=== PATIENT | male | born 1985 | race Caucasian/White ===

== ENCOUNTER 2016-07-30 18:01 | Emergency (ER) | payer OTHER ==
[~2016-07-30 18:01] MED LIST: ALFU10TA2 PO; AMIT150T PO; BENA25CA2 PO; CRAN400T3 PO; DITR5TAB PO; IBUP800T23 PO; MOBI15TA PO; PERC5TAB6 PO; ROBA500T PO; TOPA50TA7 PO; [UNRECOGNIZED DRUG - OTHER]
[2016-07-30] MEDS ORDERED: ONDANSETRON 4MG/2ML VIAL (J2405) As Ordered ONE (19:58)
[2016-07-30] MEDS ORDERED: MORPHINE 4 MG/ML 1ML SYRINGE As Ordered ONE (19:58)
[2016-07-30 20:20] LABS: BASO % 0.4 % (0.0-1.0); EOS # 0.2 K/mm3 (0.0-0.50); EOS % 1.6 % (0.0-3.0); LARGE UNSTAINED CELL # 0.2 K/mm3 (0.0-0.4); LARGE UNSTAINED CELL % 1.6 % (0.0-4.0); LYMPH # 3.1 K/mm3 (1.5-4.5); LYMPH % 28.7 % (24.0-44.0); MEAN CORPUSCULAR HEMOGLOBIN 30.1 pg (27.0-33.0); MEAN CORPUSCULAR HGB CONC 34.1 g/dl (32.0-36.5); MEAN CORPUSCULAR VOLUME 88.3 fl (80.0-96.0); MONO # 0.7 K/mm3 (0.0-0.8); MONO % 6.3 % (0.0-5.0); NEUTROPHILS # 6.7 K/mm3 (1.8-7.7); NEUTROPHILS % 61.3 % (36.0-66.0); PLATELET COUNT, AUTOMATED 230 k/mm3 (150-450); RED CELL DISTRIBUTION WIDTH 12.3 % (11.5-14.5); WHITE BLOOD COUNT 10.9 K/mm3 (4.0-10.0)
[2016-07-30 20:50] LABS: ALBUMIN 4.6 GM/DL (3.2-5.2); ALBUMIN/GLOBULIN RATIO 1.64 (1.00-1.93); ALKALINE PHOSPHATASE 81 U/L (45-117); ALT/SGPT 53 U/L (12-78); AMYLASE 44 U/L (25-115); ANION GAP 7 MEQ/L (8-16); AST/SGOT 21 U/L (15-37); BILIRUBIN,DIRECT < 0.1 MG/DL (0.0-0.2); BILIRUBIN,TOTAL 0.4 MG/DL (0.2-1.0); BLOOD UREA NITROGEN 14 MG/DL (7-18); CALCIUM LEVEL 9.5 MG/DL (8.5-10.1); CARBON DIOXIDE LEVEL 31 MEQ/L (21-32); CHLORIDE LEVEL 103 MEQ/L (98-107); CREATININE FOR GFR 0.97 MG/DL (0.70-1.30); GLOMERULAR FILTRATION RATE > 60.0 (>60); GLUCOSE, FASTING 89 MG/DL (70-105); POTASSIUM SERUM 4.1 MEQ/L (3.5-5.1); SODIUM LEVEL 141 MEQ/L (136-145); TOTAL PROTEIN 7.4 GM/DL (6.4-8.2)
--- NOTE | 2016-07-30 21:30 | REPUSA ---
CLINICAL HISTORY: Biliary colic . TECHNIQUE: Realtime sonographic images were obtained in multiple projections. COMMENTS: The visualized liver is of uniform echo texture without evidence of mass or defect. There is no intra or extrahepatic biliary ductal dilatation. The common bile duct measures 2.5 mm. The gallbladder is centimeters distended without stones, wall thickening, pericholecystic fluid or sonographic [place]. The visualized portions of the pancreas are unremarkable. Right kidney measures 10.6 cm and unremarka ble. IMPRESSION: No cholelithiasis or evidence of cholecystitis.
[2016-07-30] MEDS ORDERED: ISOVUE-370 76% 100ML VIAL (Q9967) As Ordered ONE (22:17)
--- NOTE | 2016-07-30 23:40 | REPUSA ---
CLINICAL HISTORY: Rule out appendicitis TECHNIQUE : A CT of the abdomen and pelvis was performed following the administration of oral and int ravenous contrast from the level of the heart to the proximal femoral diaphyses. Multiplanar reformat s were also obtained in coronal and sagittal projections. COMPARISON: CT abdomen pelvis 05/25/2015. FINDINGS: LOWER CHEST: The lung bases demonstrate mild bilateral lower lobe atelectasis. Heart is normal in siz e. No pleural or pericardial effusion is seen. LIVER: The liver is normal in size and contour. No hepatic lesion is seen. The portal and hepatic vei ns are patent. BILIARY SYSTEM: No intrahepatic biliary ductal dilatation is seen. The common duct is normal in calib er. The gallbladder is unremarkable with no focal or diffuse wall thickening seen. No pericholecystic fluid is seen. No calcified biliary calculi are identified. PANCREAS: The pancreas is normal in size, contour and density. No solid or cystic pancreatic mass is seen. No pancreatic duct dilatation is seen. SPLEEN: The spleen is normal in size and without focal lesion. ADRENALS: The adrenal glands are unremarkable. KIDNEYS/URETERS: The kidneys are normal in size and enhance normally. No calcified renal or ureteral calculi are seen. No suspicious renal mass or hydronephrosis is seen. The ureters are not dilated. URINARY BLADDER: The urinary bladder is unremarkable without calcified stone, wall thickening or dive rticula seen. PROSTATE/SEMINAL VESICLES: Within normal size limits with no suspicious lesion. AORTA AND ILIAC ARTERIES: No aneurysmal dilatation of the aorta or iliac arteries is seen. LYMPH NODES: No enlarged adenopathy. GASTROINTESTINAL: Stomach, duodenum , appendix on axial series 103, images 93 and 103, and bowel norm al in caliber with no abnormal dilatation, stenosis, or wall thickening. PERITONEUM/RETROPERITONEUM: No ascites or suspicious fluid collection, extraluminal air, or suspiciou s mass. ABDOMINAL/PELVIC WALL: No hernia is identified. OSSEOUS STRUCTURES/SOFT TISSUES: No suspicious osseous lesion, acute fracture, or soft tissue abnorma lity. IMPRESSION : No acute intra-abdominal pelvic abnormality
--- NOTE | 2016-07-31 00:19 | EDDOCDS ---
Physician Documentation [facility] Name: Tanner Chow Age: 31 yrs Sex: Male : 1985 Arrival Date: 07/30/2016 Time: 18:01 Bed I9 / 22 [facility] Disposition: 07/31/16 00:08 Discharged to Home/Self Care. Impression: Other abdominal pain, Fever, unspecified. - Condition is Stable. - Discharge Instructions: Abdominal Pain, Adult, Fever, Adult. - Prescriptions for Prilosec 20 mg Oral Capsule - take 1 capsule by ORAL route once daily; 10 capsule. ZOFRAN ODT 4 mg - dissolve 1 tablet by ORAL route 4 times per day As needed do not chew, do not swallow whole; 10 tablet. - Medication Reconciliation, Local Pharmacy Hours form. - [facility]; When: 1 - 2 days; Reason: Recheck today's complaints, Continuance of care. - Problem is new. - Symptoms have improved. - Notes: USE MEDICATION INSTRUCTED, FOLLOW UP WITH YOUR DOCTOR TOMORROW, RETURN TO THE ER IF THE SYMPTOMS WORSEN OR BECOME CONCERNING Historical: - Allergies: Toradolpain; - Home Meds: 1. Benadryl 25 mg Oral cap 3 caps nightly 2. gabapentin 400 mg Oral cap 1 cap nightly 3. Imitrex 6 mg/0.5 mL Sub-Q pnij 0.5 mL as needed 4. Motrin 800 mg Oral tab 1 tab 3 times per day as needed - PMHx: Chronic Back pain; Chronic Neck Pain; Kidney stones; restless leg; occipital nueralgia; - PSHx: PRK Eye Surgery; foot surgery; Shoulder Arthroplasty, Left; Hernia repair- Right inguinal; wrist surgery; testicle removed on the right; Kidney Stent- Left; - Social history: Smoking status: Patient uses tobacco products, heavy tobacco smoker. No barriers to communication noted, The patient speaks fluent Pashto, Speaks appropriately for age. - Family history: Not pertinent. - : The pt / caregiver states he / she is not on anticoagulants. Home medication list is obtained from the patient. - Exposure Risk Screening:: None identified. Vital Signs: 07/30 18:03 BP 112 / 69; Pulse 101; Resp 18 S; Temp 99.0; Pulse Ox 97% on R/A; Weight 78.47 kg / gr2 173 lbs (R); Height 5 ft. 11 in. (180.34 cm) (R); Pain 6/10; 07/31 00:16 BP 116 / 70; Pulse 68; Resp 18; Temp 97.2(O); Pulse Ox 98% on R/A; Pain 0/10; jmb 07/30 18:03 Body Mass Index 24.13 (78.47 kg, 180.34 cm) gr2 MDM: 07/30 19:24 UA Ordered. EDMS 19:30 Undress patient appropriately for examination ordered. ck7 19:30 IV Saline Lock ordered. ck7 19:30 NS 0.9% 1000 ml IV at bolus once ordered. ck7 19:31 Ondansetron 4 mg IVP once ordered. ck7 19:31 morphine 4 mg IVP once ordered. ck7 19:32 Urine Culture Ordered. EDMS 19:32 Amylase Ordered. EDMS 19:32 Basic Metabolic Profile Ordered. EDMS 19:32 CBC with Diff Ordered. EDMS 19:32 Lipase Ordered. EDMS 19:32 Liver Profile Ordered. EDMS 19:32 NOTHING BY MOUTH+DIET ordered. EDMS 20:48 CBC with Diff Reviewed. ck7 20:48 UA Reviewed. ck7 20:49 Gallbladder US Ordered. EDMS 20:51 Financial registration complete. zo 20:53 [facility] Payment Agreement was scanned into [employer] and attached to record. zo 21:15 Basic Metabolic Profile Reviewed. ck7 21:15 Amylase Reviewed. ck7 21:15 Lipase Reviewed. ck7 21:15 Liver Profile Reviewed. ck7 22:07 CT ABD & PELVIS: IV Contrast Only Ordered. EDMS 22:44 Gallbladder US Reviewed. ck7 Administered Medications: 20:07 Drug: Ondansetron 4 mg [ondansetron HCl 2 mg/mL intravenous solution (2 mL)] Route: jmb IVP; Site: left antecubital; 20:07 Drug: morphine 4 mg [morphine 4 mg/mL intravenous cartridge (1 mL)] Route: IVP; Site: jmb left antecubital; 20:08 Drug: NS 0.9% 1000 ml [sodium chloride 0.9 % intravenous solution] Route: IV; Rate: jmb bolus; Site: left antecubital; Signatures: Dispatcher [employer] EDMS [place], Berna, MARIELENA RN hs1 Jarvis Ballard, RPA-C RPA-[id number] Glen Lopez,RN RN jmb The chart was reviewed and I authenticate all verbal orders and agree with the evaluation and treatment provided.Attachments: 20:53 [facility] Payment Agreement zo MTDD
--- NOTE | 2016-07-31 00:19 | EDDOCDS ---
Nurse's Notes Name: Tanner Chow Age: 31 yrs Sex: Male : 1985 Arrival Date: 07/30/2016 Time: 18:01 Bed I9 / 22 [facility] Diagnosis: Other abdominal pain;Fever, unspecified Presentation: 07/30 18:07 Presenting complaint: Patient states: pulsating pain on right side of abdomen and now hs1 is a constant sharp pain started around 2pm. Patient reports nauseated at present. Risk factors: the patient reports not having a history of previous torsion. Adult Sepsis Screening: The patient does not have new or worsening altered mentation. Patient's respiratory rate is less than 22. Systolic blood pressure is greater than 100. Patient has a qSOFA score of 0- Negative Sepsis Screen. Suicide/Homicide risk assessment- the patient denies having any suicidal and/or homicidal ideations and does not present with any other emotional, behavioral or mental health complaints. Status: Patient is not a information services manager or dependent. Transition of care: patient was not received from another setting of care. 18:07 Acuity: SARAH Level 3 hs1 18:07 Method Of Arrival: Walkin/Carried/Asstd hs1 Triage Assessment: 18:11 General: Appears in no apparent distress, Behavior is cooperative. Pain: Location: hs1 abdomen Pain currently is 6 out of 10 on a pain scale. Quality of pain is described as sharp, throbbing, pulsating. HIV screening NA for this visit Offered previously. Respiratory: No deficits noted. GI: Reports nausea. Historical: - Allergies: Toradolpain; - Home Meds: 1. Benadryl 25 mg Oral cap 3 caps nightly 2. gabapentin 400 mg Oral cap 1 cap nightly 3. Imitrex 6 mg/0.5 mL Sub-Q pnij 0.5 mL as needed 4. Motrin 800 mg Oral tab 1 tab 3 times per day as needed - PMHx: Chronic Back pain; Chronic Neck Pain; Kidney stones; restless leg; occipital nueralgia; - PSHx: PRK Eye Surgery; foot surgery; Shoulder Arthroplasty, Left; Hernia repair- Right inguinal; wrist surgery; testicle removed on the right; Kidney Stent- Left; - Social history: Smoking status: Patient uses tobacco products, heavy tobacco smoker. No barriers to communication noted, The patient speaks fluent [place], Speaks appropriately for age. - Family history: Not pertinent. - : The pt / caregiver states he / she is not on anticoagulants. Home medication list is obtained from the patient. - Exposure Risk Screening:: None identified. Screenin:55 Screening information is obtained from the patient. Fall risk: No risks identified. jmb Assistance ADL's: requires no assistance with activities of daily living. Abuse/DV Screen: The patient / caregiver reports he/she is: not in a situation that causes fear, pain or injury. Nutritional screening: No deficits noted. home support is adequate. 07/31 00:16 Advance Directives: Currently, there is no health care proxy. There is no active DNR jmb order. There is no living will. There is no Power of Leather Scraper. Assessment: 07/30 19:55 General: Appears in no apparent distress, Behavior is appropriate for age, cooperative. jmb Pain: Location: abdomen Pain currently is 6 out of 10 on a pain scale. Neurological: Level of Consciousness is awake, alert, obeys commands, Oriented to person, place, time, Watermelon Inspector are equal bilaterally Speech is normal, Facial symmetry appears normal, Facial symmetry: tongue is midline. Cardiovascular: Capillary refill < 3 seconds Heart tones S1 S2 present Pulses are all present. Rhythm is regular. Respiratory: Airway is patent Respiratory effort is even, unlabored, Respiratory pattern is regular, symmetrical, Breath sounds are clear bilaterally. GI: Abdomen is non- distended Bowel sounds present X 4 quads. Abd is soft X 4 quads. Derm: Skin is pink, warm & dry. Musculoskeletal: Range of motion intact in all extremities. 20:22 General: Appears in no apparent distress, comfortable, Behavior is appropriate for age, jmb cooperative, Patient laying on stretcher, appears comfortable. NO voiced complaints at this time. at bedside. . Neurological: Level of Consciousness is awake, alert, obeys commands, Oriented to person, place, time, Speech is normal. Respiratory: Airway is patent Respiratory effort is even, unlabored, Respiratory pattern is regular, symmetrical. 21:30 General: Appears in no apparent distress, comfortable, Behavior is appropriate for age, jmb cooperative. Neurological: Level of Consciousness is awake, alert, obeys commands, Oriented to person, place, time. Respiratory: Airway is patent Respiratory effort is even, unlabored, Respiratory pattern is regular, symmetrical. 22:20 General: Appears in no apparent distress, comfortable, Behavior is appropriate for age, jmb cooperative, Patient laying on stretcher with at bedside. NO voiced complaints at this time. . Neurological: Level of Consciousness is awake, alert, obeys commands, Oriented to person, place, time. Respiratory: Airway is patent Respiratory effort is even, unlabored, Respiratory pattern is regular, symmetrical. 23:26 General: Appears in no apparent distress, comfortable, Behavior is appropriate for age, jmb cooperative. Neurological: Level of Consciousness is awake, alert, obeys commands, Oriented to person, place, time. Respiratory: Airway is patent Respiratory effort is even, unlabored, Respiratory pattern is regular, symmetrical. 07/31 00:16 General: Patient instructed on discharge instructions. Patient asked if there were any b questions regarding discharge, patient stated no. IV discontinued per hospital policy. Patient signed discharge instructions. Patient discharged in stable condition. . Vital Signs: 07/30 18:03 BP 112 / 69; Pulse 101; Resp 18 S; Temp 99.0; Pulse Ox 97% on R/A; Weight 78.47 kg (R); gr2 Height 5 ft. 11 in. (180.34 cm) (R); Pain 6/10; 07/31 00:16 BP 116 / 70; Pulse 68; Resp 18; Temp 97.2(O); Pulse Ox 98% on R/A; Pain 0/10; jmb 07/30 18:03 Body Mass Index 24.13 (78.47 kg, 180.34 cm) gr2 Vitals: 07/30 18:03 Log In Time: July 30, 2016 at 18:03. gr2 ED Course: 18:02 Patient visited by Lazaro Martinez. gr2 18:02 [facility]. gr2 18:02 Patient moved to Waiting gr2 18:05 Patient visited by Lazaro Martinez. gr2 18:05 Patient moved to Pre RCE gr2 18:09 Triage Initiated hs1 19:07 Patient moved to Triage 2 ttb 19:21 [facility] Ball[facility]-C [facility] ck7 19:21 Karen Maier MD is Attending Physician. ck7 19:21 Patient visited by Jarvis Ballard RPA-C. ck7 19:46 Ileana Paez, MARIELENA is Primary Nurse. ttb 19:46 Fadia Ritter,MARIELENA is Primary Nurse. ttb 19:46 Patient moved to I ttb 19:54 Amylase Sent. jmb 19:54 Basic Metabolic Profile Sent. jmb 19:54 CBC with Diff Sent. jmb 19:54 Lipase Sent. jmb 19:54 Liver Profile Sent. jmb 19:55 The patient / caregiver is instructed regarding the plan of care and ED course. jmb 19:55 Urine Culture Sent. jmb 19:55 Inserted saline lock: 18 gauge in left antecubital area and blood collected. The jmb patient tolerated the procedure well. Labs drawn. (by ED staff). Sent per order to lab. Urine collected. Clean catch specimen. 19:57 Patient visited by Glen Lopez RN. jmb 20:07 UA Sent. jmb 20:23 Patient visited by Glen Lopez RN. jmb 20:53 [facility] Payment Agreement was scanned into [employer] and attached to record. zo 20:53 Patient moved to Ultrasound br3 21:06 Patient moved to I br3 21:17 Patient visited by Jarvis Ballard RPA-C. ck7 21:29 Primary Nurse role handed off by Ileana Paez, MARIELENA pc 21:55 Patient visited by Jarvis Ballard RPA-C. ck7 22:17 Gallbladder US Returned. EDMS 22:31 Patient visited by Jarvis Ballard RPA-C. ck7 23:12 Patient visited by Jarvis Ballard RPA-C. ck7 23:53 Patient visited by Jarvis Ballard RPA-C. ck7 07/31 00:08 [facility] Referral Physician. ck7 00:13 CT ABD & PELVIS: IV Contrast Only Returned. EDMS 00:16 Discontinued lock intact, bleeding controlled, pressure dressing applied, No jmb redness/swelling at site. No procedures done that require assistance. Administered Medications: 07/30 20:07 Drug: Ondansetron 4 mg [ondansetron HCl 2 mg/mL intravenous solution (2 mL)] Route: jmb IVP; Site: left antecubital; 20:07 Drug: morphine 4 mg [morphine 4 mg/mL intravenous cartridge (1 mL)] Route: IVP; Site: b left antecubital; 20:08 Drug: NS 0.9% 1000 ml [sodium chloride 0.9 % intravenous solution] Route: IV; Rate: jmb bolus; Site: left antecubital; Order Results: Lab Order: UA; SPEC'M 07/30/16 19:53 Test: APPEARANCE, URINE; Value: CLEAR; Range: CLEAR; Status: F Test: COLOR, URINE; Value: YELLOW; Range: YELLOW; Status: F Test: PH,URINE; Value: 6.0; Range: 5.0-9.0; Units: UNITS; Status: F Test: SPECIFIC GRAVITY URINE AUTO; Value: 1.018; Range: 1.002-1.035; Status: F Test: PROTEIN, URINE AUTO; Value: NEGATIVE; Range: NEGATIVE; Units: mg/dL; Status: F Test: GLUCOSE, URINE (UA) AUTO; Value: NEGATIVE; Range: NEGATIVE; Units: mg/dL; Status: F Test: KETONE, URINE AUTO; Value: NEGATIVE; Range: NEGATIVE; Units: mg/dL; Status: F Test: UROBILINOGEN, URINE AUTO; Value: 0.2; Range: 0.0-2.0; Units: mg/dL; Status: F Test: BILIRUBIN, URINE AUTO; Value: NEGATIVE; Range: NEGATIVE; Status: F Test: NITRITE, URINE AUTO; Value: NEGATIVE; Range: NEGATIVE; Status: F Test: LEUKOCYTE ESTERASE, URINE AUTO; Value: NEGATIVE; Range: NEGATIVE; Status: F Test: BLOOD, URINE BLOOD; Value: NEGATIVE; Range: NEGATIVE; Status: F Test: WBC, URINE AUTO; Value: 1; Range: 0-3; Units: /HPF; Status: F Test: RBC, URINE AUTO; Value: 2; Range: 0-3; Units: /HPF; Status: F Test: BACTERIA, URINE AUTO; Value: NEGATIVE; Range: NEGATIVE; Status: F Test: SQUAMOUS EPITHELIAL CELL UR AU; Value: 0; Range: 0-6; Units: /HPF; Status: F Test: HYALINE CAST, URINE AUTO; Value: 0; Range: 0-1; Units: /LPF; Status: F Lab Order: Amylase; SPEC'M 07/30/16 19:53 Test: AMYLASE; Value: 44; Range: 25-115; Units: U/L; Status: F Lab Order: Basic Metabolic Profile; SPEC07/30/16 19:53 Test: GLUCOSE, FASTING; Value: 89; Range: 70-105; Units: MG/DL; Status: F Test: BLOOD UREA NITROGEN; Value: 14; Range: 7-18; Units: MG/DL; Status: F Test: CREATININE FOR GFR; Value: 0.97; Range: 0.70-1.30; Units: MG/DL; Status: F Test: GLOMERULAR FILTRATION RATE; Value: > 60.0; Range: >60; Status: F Test: SODIUM LEVEL; Value: 141; Range: 136-145; Units: MEQ/L; Status: F Test: POTASSIUM SERUM; Value: 4.1; Range: 3.5-5.1; Units: MEQ/L; Status: F Test: CHLORIDE LEVEL; Value: 103; Range: 98-107; Units: MEQ/L; Status: F Test: CARBON DIOXIDE LEVEL; Value: 31; Range: 21-32; Units: MEQ/L; Status: F Test: ANION GAP; Value: 7; Range: 8-16; Abnormal: Below low normal; Units: MEQ/L; Status: F Test: CALCIUM LEVEL; Value: 9.5; Range: 8.5-10.1; Units: MG/DL; Status: F Test Note: ; Units are mL/min/1.73 m2 Chronic Kidney Disease Staging per NKF: Stage I & II GFR >=60 Normal to Mildly Decreased Stage III GFR 30-59 Moderately Decreased Stage IV GFR 15-29 Severely Decreased Stage V GFR <15 Very Little GFR Left ESRD GFR <15 on COMMUNICATIONS SCIENTIST Lab Order: CBC with Diff; SPEC07/30/16 19:53 Test: WHITE BLOOD COUNT; Value: 10.9; Range: 4.0-10.0; Abnormal: Above high normal; Units: K/mm3; Status: F Test: RED BLOOD COUNT; Value: 5.72; Range: 4.30-6.10; Units: M/mm3; Status: F Test: HEMOGLOBIN; Value: 17.2; Range: 14.0-18.0; Units: g/dl; Status: F Test: HEMATOCRIT; Value: 50.5; Range: 42.0-52.0; Units: %; Status: F Test: MEAN CORPUSCULAR VOLUME; Value: 88.3; Range: 80.0-96.0; Units: fl; Status: F Test: MEAN CORPUSCULAR HEMOGLOBIN; Value: 30.1; Range: 27.0-33.0; Units: pg; Status: F Test: MEAN CORPUSCULAR HGB CONC; Value: 34.1; Range: 32.0-36.5; Units: g/dl; Status: F Test: RED CELL DISTRIBUTION WIDTH; Value: 12.3; Range: 11.5-14.5; Units: %; Status: F Test: PLATELET COUNT, AUTOMATED; Value: 230; Range: 150-450; Units: k/mm3; Status: F Test: NEUTROPHILS %; Value: 61.3; Range: 36.0-66.0; Units: %; Status: F Test: LYMPH %; Value: 28.7; Range: 24.0-44.0; Units: %; Status: F Test: MONO %; Value: 6.3; Range: 0.0-5.0; Abnormal: Above high normal; Units: %; Status: F Test: EOS %; Value: 1.6; Range: 0.0-3.0; Units: %; Status: F Test: BASO %; Value: 0.4; Range: 0.0-1.0; Units: %; Status: F Test: LARGE UNSTAINED CELL %; Value: 1.6; Range: 0.0-4.0; Units: %; Status: F Test: NEUTROPHILS #; Value: 6.7; Range: 1.8-7.7; Units: K/mm3; Status: F Test: LYMPH #; Value: 3.1; Range: 1.5-4.5; Units: K/mm3; Status: F Test: MONO #; Value: 0.7; Range: 0.0-0.8; Units: K/mm3; Status: F Test: EOS #; Value: 0.2; Range: 0.0-0.50; Units: K/mm3; Status: F Test: BASO #; Value: 0.0; Range: 0.0-0.2; Units: K/mm3; Status: F Test: LARGE UNSTAINED CELL #; Value: 0.2; Range: 0.0-0.4; Units: K/mm3; Status: F Lab Order: Lipase; SPEC'M 07/30/16 19:53 Test: LIPASE; Value: 137; Range: 73-393; Units: U/L; Status: F Lab Order: Liver Profile; SPEC'M 07/30/16 19:53 Test: AST/SGOT; Value: 21; Range: 15-37; Units: U/L; Status: F Test: ALT/SGPT; Value: 53; Range: 12-78; Units: U/L; Status: F Test: ALKALINE PHOSPHATASE; Value: 81; Range: 45-117; Units: U/L; Status: F Test: BILIRUBIN,TOTAL; Value: 0.4; Range: 0.2-1.0; Units: MG/DL; Status: F Test: BILIRUBIN,DIRECT; Value: < 0.1; Range: 0.0-0.2; Units: MG/DL; Status: F Test: TOTAL PROTEIN; Value: 7.4; Range: 6.4-8.2; Units: GM/DL; Status: F Test: ALBUMIN; Value: 4.6; Range: 3.2-5.2; Units: GM/DL; Status: F Test: ALBUMIN/GLOBULIN RATIO; Value: 1.64; Range: 1.00-1.93; Status: F Radiology Order: Gallbladder US Test: Gallbladder US REASON FOR EXAMINATION: Biliary Colic; ; CLINICAL HISTORY: Biliary colic .; TECHNIQUE: Realtime sonographic images were obtained in multiple projections.; COMMENTS:; The visualized liver is of uniform echo texture without evidence of mass or defect. There is no intra; or extrahepatic biliary ductal dilatation. The common bile duct measures 2.5 mm. The gallbladder is; centimeters distended without stones, wall thickening, pericholecystic fluid or sonographic [place] si; gn.; The visualized portions of the pancreas are unremarkable. Right kidney measures 10.6 cm and unremarka; ble.; IMPRESSION:; No cholelithiasis or evidence of cholecystitis.; ; Radiology Order: CT ABD & PELVIS: IV Contrast Only Test: CT ABD & PELVIS: IV Contrast Only REASON FOR EXAMINATION: Appendicitis; ; CLINICAL HISTORY: Rule out appendicitis; TECHNIQUE : A CT of the abdomen and pelvis was performed following the administration of oral and int; ravenous contrast from the level of the heart to the proximal femoral diaphyses. Multiplanar reformat; s were also obtained in coronal and sagittal projections.; COMPARISON: CT abdomen pelvis 05/25/2015.; FINDINGS:; LOWER CHEST: The lung bases demonstrate mild bilateral lower lobe atelectasis. Heart is normal in siz; e. No pleural or pericardial effusion is seen.; LIVER: The liver is normal in size and contour. No hepatic lesion is seen. The portal and hepatic vei; ns are patent.; BILIARY SYSTEM: No intrahepatic biliary ductal dilatation is seen. The common duct is normal in calib; er. The gallbladder is unremarkable with no focal or diffuse wall thickening seen. No pericholecystic; fluid is seen. No calcified biliary calculi are identified.; PANCREAS: The pancreas is normal in size, contour and density. No solid or cystic pancreatic mass is; seen. No pancreatic duct dilatation is seen.; SPLEEN: The spleen is normal in size and without focal lesion.; ADRENALS: The adrenal glands are unremarkable.; KIDNEYS/URETERS: The kidneys are normal in size and enhance normally. No calcified renal or ureteral; calculi are seen. No suspicious renal mass or hydronephrosis is seen. The ureters are not dilated.; URINARY BLADDER: The urinary bladder is unremarkable without calcified stone, wall thickening or dive; rticula seen.; PROSTATE/SEMINAL VESICLES: Within normal size limits with no suspicious lesion.; AORTA AND ILIAC ARTERIES: No aneurysmal dilatation of the aorta or iliac arteries is seen.; LYMPH NODES: No enlarged adenopathy.; GASTROINTESTINAL: Stomach, duodenum , appendix on axial series 103, images 93 and 103, and bowel norm; al in caliber with no abnormal dilatation, stenosis, or wall thickening.; PERITONEUM/RETROPERITONEUM: No ascites or suspicious fluid collection, extraluminal air, or suspiciou; s mass.; ABDOMINAL/PELVIC WALL: No hernia is identified.; OSSEOUS STRUCTURES/SOFT TISSUES: No suspicious osseous lesion, acute fracture, or soft tissue abnorma; lity.; IMPRESSION :; No acute intra-abdominal pelvic abnormality; ; Outcome: 07/31 00:08 Discharge ordered by Provider. ck7 00:16 Discharge Assessment: Patient awake, alert and oriented x 3. No cognitive and/or jmb functional deficits noted. Patient verbalized understanding of disposition instructions. Patient awake and alert. obeys commands, Oriented to person, place and time. Patient verbalized understanding of disposition instructions. Patient has no functional deficits. patient administered narcotics - no. The following High Risk Discharge criteria are identified: None. Discharged to home ambulatory, with significant other. Condition: stable Condition: improved. Discharge instructions given to patient, Instructed on discharge instructions, follow up and referral plans. medication usage, Demonstrated understanding of instructions, medications, Pt was receptive of discharge instructions/ teaching. Prescriptions given X 2. CT Study completed. Property sent home with patient. 00:19 Patient left the ED. erik Signatures: Dispatcher [employer] EDMS Darci Pérez MD MD pc Olin, Zoeann zo Raymond, Brianne br3 Berna Alford, RN RN hs1 Jarvis Ballard, RPA-C RPA-Cck7 Cora Garcia, RN RN Lazaro Costa gr2 Glen Lopez,RN RN erik MTDD
--- NOTE | 2016-08-02 01:20 | EDDOCDS ---
Physician Documentation [facility] Name: Tanner Chow Age: 31 yrs Sex: Male : 1985 Arrival Date: 07/30/2016 Time: 18:01 Bed I9 / 22 [facility] Disposition: 07/31/16 00:08 Discharged to Home/Self Care. Impression: Other abdominal pain, Fever, unspecified. - Condition is Stable. - Discharge Instructions: Abdominal Pain, Adult, Fever, Adult. - Prescriptions for Prilosec 20 mg Oral Capsule - take 1 capsule by ORAL route once daily; 10 capsule. ZOFRAN ODT 4 mg - dissolve 1 tablet by ORAL route 4 times per day As needed do not chew, do not swallow whole; 10 tablet. - Medication Reconciliation, Local Pharmacy Hours form. - [facility]; When: 1 - 2 days; Reason: Recheck today's complaints, Continuance of care. - Problem is new. - Symptoms have improved. - Notes: USE MEDICATION INSTRUCTED, FOLLOW UP WITH YOUR DOCTOR TOMORROW, RETURN TO THE ER IF THE SYMPTOMS WORSEN OR BECOME CONCERNING Historical: - Allergies: Toradolpain; - Home Meds: 1. Benadryl 25 mg Oral cap 3 caps nightly 2. gabapentin 400 mg Oral cap 1 cap nightly 3. Imitrex 6 mg/0.5 mL Sub-Q pnij 0.5 mL as needed 4. Motrin 800 mg Oral tab 1 tab 3 times per day as needed - PMHx: Chronic Back pain; Chronic Neck Pain; Kidney stones; restless leg; occipital nueralgia; - PSHx: PRK Eye Surgery; foot surgery; Shoulder Arthroplasty, Left; Hernia repair- Right inguinal; wrist surgery; testicle removed on the right; Kidney Stent- Left; - Social history: Smoking status: Patient uses tobacco products, heavy tobacco smoker. No barriers to communication noted, The patient speaks fluent [place]ian, Speaks appropriately for age. - Family history: Not pertinent. - : The pt / caregiver states he / she is not on anticoagulants. Home medication list is obtained from the patient. - Exposure Risk Screening:: None identified. Vital Signs: 07/30 18:03 BP 112 / 69; Pulse 101; Resp 18 S; Temp 99.0; Pulse Ox 97% on R/A; Weight 78.47 kg / gr2 173 lbs (R); Height 5 ft. 11 in. (180.34 cm) (R); Pain 6/10; 07/31 00:16 BP 116 / 70; Pulse 68; Resp 18; Temp 97.2(O); Pulse Ox 98% on R/A; Pain 0/10; jmb 07/30 18:03 Body Mass Index 24.13 (78.47 kg, 180.34 cm) gr2 MDM: 07/30 19:24 UA Ordered. EDMS 19:30 Undress patient appropriately for examination ordered. ck7 19:30 IV Saline Lock ordered. ck7 19:30 NS 0.9% 1000 ml IV at bolus once ordered. ck7 19:31 Ondansetron 4 mg IVP once ordered. ck7 19:31 morphine 4 mg IVP once ordered. ck7 19:32 Urine Culture Ordered. EDMS 19:32 Amylase Ordered. EDMS 19:32 Basic Metabolic Profile Ordered. EDMS 19:32 CBC with Diff Ordered. EDMS 19:32 Lipase Ordered. EDMS 19:32 Liver Profile Ordered. EDMS 19:32 NOTHING BY MOUTH+DIET ordered. EDMS 20:48 CBC with Diff Reviewed. ck7 20:48 UA Reviewed. ck7 20:49 Gallbladder US Ordered. EDMS 20:51 Financial registration complete. zo 20:53 [facility] Payment Agreement was scanned into [employer] and attached to record. zo 21:15 Basic Metabolic Profile Reviewed. ck7 21:15 Amylase Reviewed. ck7 21:15 Lipase Reviewed. ck7 21:15 Liver Profile Reviewed. ck7 22:07 CT ABD & PELVIS: IV Contrast Only Ordered. EDMS 22:44 Gallbladder US Reviewed. ck7 07/31 13:26 T-Sheet-- Draft Copy was scanned into [employer] and attached to record. gb Administered Medications: 07/30 20:07 Drug: Ondansetron 4 mg [ondansetron HCl 2 mg/mL intravenous solution (2 mL)] Route: b IVP; Site: left antecubital; 20:07 Drug: morphine 4 mg [morphine 4 mg/mL intravenous cartridge (1 mL)] Route: IVP; Site: b left antecubital; 20:08 Drug: NS 0.9% 1000 ml [sodium chloride 0.9 % intravenous solution] Route: IV; Rate: jmb bolus; Site: left antecubital; Signatures: Dispatcher [employer] EDMS Crystal Herndon, Reg Reg gb [place] Hannah, MARIELENA RN hs1 Jarvis Ballard, RPA-C RPA-Cck7 Glen Lopez RN RN jmb The chart was reviewed and I authenticate all verbal orders and agree with the evaluation and treatment provided.Attachments: 20:53 [facility] Payment Agreement zo 07/31 13:26 T-Sheet-- Draft Copy gb Chart Complete MTDD
--- NOTE | 2016-08-02 01:20 | EDDOCDS ---
Physician Documentation [facility] Name: Tanner Chow Age: 31 yrs Sex: Male : 1985 Arrival Date: 07/30/2016 Time: 18:01 Bed I9 / 22 [facility] Disposition: 07/31/16 00:08 Discharged to Home/Self Care. Impression: Other abdominal pain, Fever, unspecified. - Condition is Stable. - Discharge Instructions: Abdominal Pain, Adult, Fever, Adult. - Prescriptions for Prilosec 20 mg Oral Capsule - take 1 capsule by ORAL route once daily; 10 capsule. ZOFRAN ODT 4 mg - dissolve 1 tablet by ORAL route 4 times per day As needed do not chew, do not swallow whole; 10 tablet. - Medication Reconciliation, Local Pharmacy Hours form. - [facility]; When: 1 - 2 days; Reason: Recheck today's complaints, Continuance of care. - Problem is new. - Symptoms have improved. - Notes: USE MEDICATION INSTRUCTED, FOLLOW UP WITH YOUR DOCTOR TOMORROW, RETURN TO THE ER IF THE SYMPTOMS WORSEN OR BECOME CONCERNING Historical: - Allergies: Toradolpain; - Home Meds: 1. Benadryl 25 mg Oral cap 3 caps nightly 2. gabapentin 400 mg Oral cap 1 cap nightly 3. Imitrex 6 mg/0.5 mL Sub-Q pnij 0.5 mL as needed 4. Motrin 800 mg Oral tab 1 tab 3 times per day as needed - PMHx: Chronic Back pain; Chronic Neck Pain; Kidney stones; restless leg; occipital nueralgia; - PSHx: PRK Eye Surgery; foot surgery; Shoulder Arthroplasty, Left; Hernia repair- Right inguinal; wrist surgery; testicle removed on the right; Kidney Stent- Left; - Social history: Smoking status: Patient uses tobacco products, heavy tobacco smoker. No barriers to communication noted, The patient speaks fluent Lithuanian, Speaks appropriately for age. - Family history: Not pertinent. - : The pt / caregiver states he / she is not on anticoagulants. Home medication list is obtained from the patient. - Exposure Risk Screening:: None identified. Vital Signs: 07/30 18:03 BP 112 / 69; Pulse 101; Resp 18 S; Temp 99.0; Pulse Ox 97% on R/A; Weight 78.47 kg / gr2 173 lbs (R); Height 5 ft. 11 in. (180.34 cm) (R); Pain 6/10; 07/31 00:16 BP 116 / 70; Pulse 68; Resp 18; Temp 97.2(O); Pulse Ox 98% on R/A; Pain 0/10; jmb 07/30 18:03 Body Mass Index 24.13 (78.47 kg, 180.34 cm) gr2 MDM: 07/30 19:24 UA Ordered. EDMS 19:30 Undress patient appropriately for examination ordered. ck7 19:30 IV Saline Lock ordered. ck7 19:30 NS 0.9% 1000 ml IV at bolus once ordered. ck7 19:31 Ondansetron 4 mg IVP once ordered. ck7 19:31 morphine 4 mg IVP once ordered. ck7 19:32 Urine Culture Ordered. EDMS 19:32 Amylase Ordered. EDMS 19:32 Basic Metabolic Profile Ordered. EDMS 19:32 CBC with Diff Ordered. EDMS 19:32 Lipase Ordered. EDMS 19:32 Liver Profile Ordered. EDMS 19:32 NOTHING BY MOUTH+DIET ordered. EDMS 20:48 CBC with Diff Reviewed. ck7 20:48 UA Reviewed. ck7 20:49 Gallbladder US Ordered. EDMS 20:51 Financial registration complete. zo 20:53 [facility] [place] was scanned into RUS[employer] and attached to record. zo 21:15 Basic Metabolic Profile Reviewed. ck7 21:15 Amylase Reviewed. ck7 21:15 Lipase Reviewed. ck7 21:15 Liver Profile Reviewed. ck7 22:07 CT ABD & PELVIS: IV Contrast Only Ordered. EDMS 22:44 Gallbladder US Reviewed. ck7 07/31 13:26 T-Sheet-- Draft Copy was scanned into RUSBASE and attached to record. gb Administered Medications: 07/30 20:07 Drug: Ondansetron 4 mg [ondansetron HCl 2 mg/mL intravenous solution (2 mL)] Route: b IVP; Site: left antecubital; 20:07 Drug: morphine 4 mg [morphine 4 mg/mL intravenous cartridge (1 mL)] Route: IVP; Site: b left antecubital; 20:08 Drug: NS 0.9% 1000 ml [sodium chloride 0.9 % intravenous solution] Route: IV; Rate: jmb bolus; Site: left antecubital; Signatures: Dispatcher MedHost EDMS Crystal Herndon, Reg Reg gb Citlaly High Hannah, MARIELENA RN hs1 Jarvis Ballard, RPA-C RPA-Cck7 Glen Lopez RN RN jmb The chart was reviewed and I authenticate all verbal orders and agree with the evaluation and treatment provided.Attachments: 20:53 [facility] Payment Agreement zo 07/31 13:26 T-Sheet-- Draft Copy gb Chart Complete MTDD
--- NOTE | 2016-08-02 01:20 | EDDOCDS ---
Nurse's Notes [facility] Name: Tanner Chow Age: 31 yrs Sex: Male : 1985 Arrival Date: 07/30/2016 Time: 18:01 Bed I9 / 22 [facility] Diagnosis: Other abdominal pain;Fever, unspecified Presentation: 07/30 18:07 Presenting complaint: Patient states: pulsating pain on right side of abdomen and now hs1 is a constant sharp pain started around 2pm. Patient reports nauseated at present. Risk factors: the patient reports not having a history of previous torsion. Adult Sepsis Screening: The patient does not have new or worsening altered mentation. Patient's respiratory rate is less than 22. Systolic blood pressure is greater than 100. Patient has a qSOFA score of 0- Negative Sepsis Screen. Suicide/Homicide risk assessment- the patient denies having any suicidal and/or homicidal ideations and does not present with any other emotional, behavioral or mental health complaints. 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 Transition of care: patient was not received from another setting of care. 18:07 Acuity: SARAH Level 3 hs1 18:07 Method Of Arrival: Walkin/Carried/Asstd hs1 Triage Assessment: 18:11 General: Appears in no apparent distress, Behavior is cooperative. Pain: Location: hs1 abdomen Pain currently is 6 out of 10 on a pain scale. Quality of pain is described as sharp, throbbing, pulsating. HIV screening NA for this visit Offered previously. Respiratory: No deficits noted. GI: Reports nausea. Historical: - Allergies: Toradolpain; - Home Meds: 1. Benadryl 25 mg Oral cap 3 caps nightly 2. gabapentin 400 mg Oral cap 1 cap nightly 3. Imitrex 6 mg/0.5 mL Sub-Q pnij 0.5 mL as needed 4. Motrin 800 mg Oral tab 1 tab 3 times per day as needed - PMHx: Chronic Back pain; Chronic Neck Pain; Kidney stones; restless leg; occipital nueralgia; - PSHx: PRK Eye Surgery; foot surgery; Shoulder Arthroplasty, Left; Hernia repair- Right inguinal; wrist surgery; testicle removed on the right; Kidney Stent- Left; - Social history: Smoking status: Patient uses tobacco products, heavy tobacco smoker. No barriers to communication noted, The patient speaks fluent Filipino, Speaks appropriately for age. - Family history: Not pertinent. - : The pt / caregiver states he / she is not on anticoagulants. Home medication list is obtained from the patient. - Exposure Risk Screening:: None identified. Screenin:55 Screening information is obtained from the patient. Fall risk: No risks identified. jmb Assistance ADL's: requires no assistance with activities of daily living. Abuse/DV Screen: The patient / caregiver reports he/she is: not in a situation that causes fear, pain or injury. Nutritional screening: No deficits noted. home support is adequate. 07/31 00:16 Advance Directives: Currently, there is no health care proxy. There is no active DNR jmb order. There is no living will. There is no Power of Assembly Member. Assessment: 07/30 19:55 General: Appears in no apparent distress, Behavior is appropriate for age, cooperative. jmb Pain: Location: abdomen Pain currently is 6 out of 10 on a pain scale. Neurological: Level of Consciousness is awake, alert, obeys commands, Oriented to person, place, time, Registration Representative are equal bilaterally Speech is normal, Facial symmetry appears normal, Facial symmetry: tongue is midline. Cardiovascular: Capillary refill < 3 seconds Heart tones S1 S2 present Pulses are all present. Rhythm is regular. Respiratory: Airway is patent Respiratory effort is even, unlabored, Respiratory pattern is regular, symmetrical, Breath sounds are clear bilaterally. GI: Abdomen is non- distended Bowel sounds present X 4 quads. Abd is soft X 4 quads. Derm: Skin is pink, warm & dry. Musculoskeletal: Range of motion intact in all extremities. 20:22 General: Appears in no apparent distress, comfortable, Behavior is appropriate for age, jmb cooperative, Patient laying on stretcher, appears comfortable. NO voiced complaints at this time. at bedside. . Neurological: Level of Consciousness is awake, alert, obeys commands, Oriented to person, place, time, Speech is normal. Respiratory: Airway is patent Respiratory effort is even, unlabored, Respiratory pattern is regular, symmetrical. 21:30 General: Appears in no apparent distress, comfortable, Behavior is appropriate for age, jmb cooperative. Neurological: Level of Consciousness is awake, alert, obeys commands, Oriented to person, place, time. Respiratory: Airway is patent Respiratory effort is even, unlabored, Respiratory pattern is regular, symmetrical. 22:20 General: Appears in no apparent distress, comfortable, Behavior is appropriate for age, jmb cooperative, Patient laying on stretcher with at bedside. NO voiced complaints at this time. . Neurological: Level of Consciousness is awake, alert, obeys commands, Oriented to person, place, time. Respiratory: Airway is patent Respiratory effort is even, unlabored, Respiratory pattern is regular, symmetrical. 23:26 General: Appears in no apparent distress, comfortable, Behavior is appropriate for age, jmb cooperative. Neurological: Level of Consciousness is awake, alert, obeys commands, Oriented to person, place, time. Respiratory: Airway is patent Respiratory effort is even, unlabored, Respiratory pattern is regular, symmetrical. 07/31 00:16 General: Patient instructed on discharge instructions. Patient asked if there were any b questions regarding discharge, patient stated no. IV discontinued per hospital policy. Patient signed discharge instructions. Patient discharged in stable condition. . Vital Signs: 07/30 18:03 BP 112 / 69; Pulse 101; Resp 18 S; Temp 99.0; Pulse Ox 97% on R/A; Weight 78.47 kg (R); gr2 Height 5 ft. 11 in. (180.34 cm) (R); Pain 6/10; 07/31 00:16 BP 116 / 70; Pulse 68; Resp 18; Temp 97.2(O); Pulse Ox 98% on R/A; Pain 0/10; jmb 07/30 18:03 Body Mass Index 24.13 (78.47 kg, 180.34 cm) gr2 Vitals: 07/30 18:03 Log In Time: July 30, 2016 at 18:03. gr2 ED Course: 18:02 Patient visited by Lazaro Martinez. gr2 18:02 [facility] gr2 18:02 Patient moved to Waiting gr2 18:05 Patient visited by Lazaro Martinez. gr2 18:05 Patient moved to Pre RCE gr2 18:09 Triage Initiated hs1 19:07 Patient moved to Triage 2 ttb 19:21 [facility]ard [facility] ck7 19:21 Karen Maier MD is Attending Physician. ck7 19:21 Patient visited by Jarvis Ballard RPA-C. ck7 19:46 Ileana Paez, MARIELENA is Primary Nurse. ttb 19:46 Fadia Ritter,MARIELENA is Primary Nurse. ttb 19:46 Patient moved to I ttb 19:54 Amylase Sent. jmb 19:54 Basic Metabolic Profile Sent. jmb 19:54 CBC with Diff Sent. jmb 19:54 Lipase Sent. jmb 19:54 Liver Profile Sent. jmb 19:55 The patient / caregiver is instructed regarding the plan of care and ED course. jmb 19:55 Urine Culture Sent. jmb 19:55 Inserted saline lock: 18 gauge in left antecubital area and blood collected. The jmb patient tolerated the procedure well. Labs drawn. (by ED staff). Sent per order to lab. Urine collected. Clean catch specimen. 19:57 Patient visited by Glen Lopez RN. jmb 20:07 UA Sent. jmb 20:23 Patient visited by Glen Lopez RN. jmb 20:53 [facility] Payment Agreement was scanned into KidZ[employer] and attached to record. zo 20:53 Patient moved to Ultrasound br3 21:06 Patient moved to I br3 21:17 Patient visited by Jarvis Ballard RPA-C. ck7 21:29 Primary Nurse role handed off by Ileana Paez, MARIELENA pc 21:55 Patient visited by Jarvis Ballard RPA-C. ck7 22:17 Gallbladder US Returned. EDMS 22:31 Patient visited by Jarvis Ballard RPA-C. ck7 23:12 Patient visited by Jarvis Ballard RPA-C. ck7 23:53 Patient visited by Jarvis Ballard RPA-C. ck7 07/31 00:08 [facility]. ck7 00:13 CT ABD & PELVIS: IV Contrast Only Returned. EDMS 00:16 Discontinued lock intact, bleeding controlled, pressure dressing applied, No jmb redness/swelling at site. No procedures done that require assistance. 13:26 T-Sheet-- Draft Copy was scanned into Kid[employer] and attached to record. gb Administered Medications: 07/30 20:07 Drug: Ondansetron 4 mg [ondansetron HCl 2 mg/mL intravenous solution (2 mL)] Route: jmb IVP; Site: left antecubital; 20:07 Drug: morphine 4 mg [morphine 4 mg/mL intravenous cartridge (1 mL)] Route: IVP; Site: jmb left antecubital; 20:08 Drug: NS 0.9% 1000 ml [sodium chloride 0.9 % intravenous solution] Route: IV; Rate: jmb bolus; Site: left antecubital; Order Results: Lab Order: UA; SPEC'M 07/30/16 19:53 Test: APPEARANCE, URINE; Value: CLEAR; Range: CLEAR; Status: F Test: COLOR, URINE; Value: YELLOW; Range: YELLOW; Status: F Test: PH,URINE; Value: 6.0; Range: 5.0-9.0; Units: UNITS; Status: F Test: SPECIFIC GRAVITY URINE AUTO; Value: 1.018; Range: 1.002-1.035; Status: F Test: PROTEIN, URINE AUTO; Value: NEGATIVE; Range: NEGATIVE; Units: mg/dL; Status: F Test: GLUCOSE, URINE (UA) AUTO; Value: NEGATIVE; Range: NEGATIVE; Units: mg/dL; Status: F Test: KETONE, URINE AUTO; Value: NEGATIVE; Range: NEGATIVE; Units: mg/dL; Status: F Test: UROBILINOGEN, URINE AUTO; Value: 0.2; Range: 0.0-2.0; Units: mg/dL; Status: F Test: BILIRUBIN, URINE AUTO; Value: NEGATIVE; Range: NEGATIVE; Status: F Test: NITRITE, URINE AUTO; Value: NEGATIVE; Range: NEGATIVE; Status: F Test: LEUKOCYTE ESTERASE, URINE AUTO; Value: NEGATIVE; Range: NEGATIVE; Status: F Test: BLOOD, URINE BLOOD; Value: NEGATIVE; Range: NEGATIVE; Status: F Test: WBC, URINE AUTO; Value: 1; Range: 0-3; Units: /HPF; Status: F Test: RBC, URINE AUTO; Value: 2; Range: 0-3; Units: /HPF; Status: F Test: BACTERIA, URINE AUTO; Value: NEGATIVE; Range: NEGATIVE; Status: F Test: SQUAMOUS EPITHELIAL CELL UR AU; Value: 0; Range: 0-6; Units: /HPF; Status: F Test: HYALINE CAST, URINE AUTO; Value: 0; Range: 0-1; Units: /LPF; Status: F Lab Order: Amylase; SPEC'07/30/16 19:53 Test: AMYLASE; Value: 44; Range: 25-115; Units: U/L; Status: F Lab Order: Basic Metabolic Profile; SPEC'07/30/16 19:53 Test: GLUCOSE, FASTING; Value: 89; Range: 70-105; Units: MG/DL; Status: F Test: BLOOD UREA NITROGEN; Value: 14; Range: 7-18; Units: MG/DL; Status: F Test: CREATININE FOR GFR; Value: 0.97; Range: 0.70-1.30; Units: MG/DL; Status: F Test: GLOMERULAR FILTRATION RATE; Value: > 60.0; Range: >60; Status: F Test: SODIUM LEVEL; Value: 141; Range: 136-145; Units: MEQ/L; Status: F Test: POTASSIUM SERUM; Value: 4.1; Range: 3.5-5.1; Units: MEQ/L; Status: F Test: CHLORIDE LEVEL; Value: 103; Range: 98-107; Units: MEQ/L; Status: F Test: CARBON DIOXIDE LEVEL; Value: 31; Range: 21-32; Units: MEQ/L; Status: F Test: ANION GAP; Value: 7; Range: 8-16; Abnormal: Below low normal; Units: MEQ/L; Status: F Test: CALCIUM LEVEL; Value: 9.5; Range: 8.5-10.1; Units: MG/DL; Status: F Test Note: ; Units are mL/min/1.73 m2 Chronic Kidney Disease Staging per NKF: Stage I & II GFR >=60 Normal to Mildly Decreased Stage III GFR 30-59 Moderately Decreased Stage IV GFR 15-29 Severely Decreased Stage V GFR <15 Very Little GFR Left ESRD GFR <15 on EXPLOSIVES WORKER Lab Order: CBC with Diff; SPEC07/30/16 19:53 Test: WHITE BLOOD COUNT; Value: 10.9; Range: 4.0-10.0; Abnormal: Above high normal; Units: K/mm3; Status: F Test: RED BLOOD COUNT; Value: 5.72; Range: 4.30-6.10; Units: M/mm3; Status: F Test: HEMOGLOBIN; Value: 17.2; Range: 14.0-18.0; Units: g/dl; Status: F Test: HEMATOCRIT; Value: 50.5; Range: 42.0-52.0; Units: %; Status: F Test: MEAN CORPUSCULAR VOLUME; Value: 88.3; Range: 80.0-96.0; Units: fl; Status: F Test: MEAN CORPUSCULAR HEMOGLOBIN; Value: 30.1; Range: 27.0-33.0; Units: pg; Status: F Test: MEAN CORPUSCULAR HGB CONC; Value: 34.1; Range: 32.0-36.5; Units: g/dl; Status: F Test: RED CELL DISTRIBUTION WIDTH; Value: 12.3; Range: 11.5-14.5; Units: %; Status: F Test: PLATELET COUNT, AUTOMATED; Value: 230; Range: 150-450; Units: k/mm3; Status: F Test: NEUTROPHILS %; Value: 61.3; Range: 36.0-66.0; Units: %; Status: F Test: LYMPH %; Value: 28.7; Range: 24.0-44.0; Units: %; Status: F Test: MONO %; Value: 6.3; Range: 0.0-5.0; Abnormal: Above high normal; Units: %; Status: F Test: EOS %; Value: 1.6; Range: 0.0-3.0; Units: %; Status: F Test: BASO %; Value: 0.4; Range: 0.0-1.0; Units: %; Status: F Test: LARGE UNSTAINED CELL %; Value: 1.6; Range: 0.0-4.0; Units: %; Status: F Test: NEUTROPHILS #; Value: 6.7; Range: 1.8-7.7; Units: K/mm3; Status: F Test: LYMPH #; Value: 3.1; Range: 1.5-4.5; Units: K/mm3; Status: F Test: MONO #; Value: 0.7; Range: 0.0-0.8; Units: K/mm3; Status: F Test: EOS #; Value: 0.2; Range: 0.0-0.50; Units: K/mm3; Status: F Test: BASO #; Value: 0.0; Range: 0.0-0.2; Units: K/mm3; Status: F Test: LARGE UNSTAINED CELL #; Value: 0.2; Range: 0.0-0.4; Units: K/mm3; Status: F Lab Order: Lipase; [facility] 07/30/16 19:53 Test: LIPASE; Value: 137; Range: 73-393; Units: U/L; Status: F Lab Order: Liver Profile; [facility] 07/30/16 19:53 Test: AST/SGOT; Value: 21; Range: 15-37; Units: U/L; Status: F Test: ALT/SGPT; Value: 53; Range: 12-78; Units: U/L; Status: F Test: ALKALINE PHOSPHATASE; Value: 81; Range: 45-117; Units: U/L; Status: F Test: BILIRUBIN,TOTAL; Value: 0.4; Range: 0.2-1.0; Units: MG/DL; Status: F Test: BILIRUBIN,DIRECT; Value: < 0.1; Range: 0.0-0.2; Units: MG/DL; Status: F Test: TOTAL PROTEIN; Value: 7.4; Range: 6.4-8.2; Units: GM/DL; Status: F Test: ALBUMIN; Value: 4.6; Range: 3.2-5.2; Units: GM/DL; Status: F Test: ALBUMIN/GLOBULIN RATIO; Value: 1.64; Range: 1.00-1.93; Status: F Lab Order: Urine Culture; [facility] 07/30/16 19:53 Test: URINE CULTURE; Value: <EXTERNAL COMMENT eCWMed> FULL REPORT IN LAB NOTES (eCW and Medent).; Status: F Test: URINE CULTURE; Value: URINE CULTURE RESULT NO GROWTH; Status: F Radiology Order: Gallbladder US Test: Gallbladder US REASON FOR EXAMINATION: Biliary Colic; ; CLINICAL HISTORY: Biliary colic .; TECHNIQUE: Realtime sonographic images were obtained in multiple projections.; COMMENTS:; The visualized liver is of uniform echo texture without evidence of mass or defect. There is no intra; or extrahepatic biliary ductal dilatation. The common bile duct measures 2.5 mm. The gallbladder is; centimeters distended without stones, wall thickening, pericholecystic fluid or sonographic [place] si; gn.; The visualized portions of the pancreas are unremarkable. Right kidney measures 10.6 cm and unremarka; ble.; IMPRESSION:; No cholelithiasis or evidence of cholecystitis.; ; Radiology Order: CT ABD & PELVIS: IV Contrast Only Test: CT ABD & PELVIS: IV Contrast Only REASON FOR EXAMINATION: Appendicitis; ; CLINICAL HISTORY: Rule out appendicitis; TECHNIQUE : A CT of the abdomen and pelvis was performed following the administration of oral and int; ravenous contrast from the level of the heart to the proximal femoral diaphyses. Multiplanar reformat; s were also obtained in coronal and sagittal projections.; COMPARISON: CT abdomen pelvis 05/25/2015.; FINDINGS:; LOWER CHEST: The lung bases demonstrate mild bilateral lower lobe atelectasis. Heart is normal in siz; e. No pleural or pericardial effusion is seen.; LIVER: The liver is normal in size and contour. No hepatic lesion is seen. The portal and hepatic vei; ns are patent.; BILIARY SYSTEM: No intrahepatic biliary ductal dilatation is seen. The common duct is normal in calib; er. The gallbladder is unremarkable with no focal or diffuse wall thickening seen. No pericholecystic; fluid is seen. No calcified biliary calculi are identified.; PANCREAS: The pancreas is normal in size, contour and density. No solid or cystic pancreatic mass is; seen. No pancreatic duct dilatation is seen.; SPLEEN: The spleen is normal in size and without focal lesion.; ADRENALS: The adrenal glands are unremarkable.; KIDNEYS/URETERS: The kidneys are normal in size and enhance normally. No calcified renal or ureteral; calculi are seen. No suspicious renal mass or hydronephrosis is seen. The ureters are not dilated.; URINARY BLADDER: The urinary bladder is unremarkable without calcified stone, wall thickening or dive; rticula seen.; PROSTATE/SEMINAL VESICLES: Within normal size limits with no suspicious lesion.; AORTA AND ILIAC ARTERIES: No aneurysmal dilatation of the aorta or iliac arteries is seen.; LYMPH NODES: No enlarged adenopathy.; GASTROINTESTINAL: Stomach, duodenum , appendix on axial series 103, images 93 and 103, and bowel norm; al in caliber with no abnormal dilatation, stenosis, or wall thickening.; PERITONEUM/RETROPERITONEUM: No ascites or suspicious fluid collection, extraluminal air, or suspiciou; s mass.; ABDOMINAL/PELVIC WALL: No hernia is identified.; OSSEOUS STRUCTURES/SOFT TISSUES: No suspicious osseous lesion, acute fracture, or soft tissue abnorma; lity.; IMPRESSION :; No acute intra-abdominal pelvic abnormality; ; Outcome: 07/31 00:08 Discharge ordered by Provider. ck7 00:16 Discharge Assessment: Patient awake, alert and oriented x 3. No cognitive and/or jmb functional deficits noted. Patient verbalized understanding of disposition instructions. Patient awake and alert. obeys commands, Oriented to person, place and time. Patient verbalized understanding of disposition instructions. Patient has no functional deficits. patient administered narcotics - no. The following High Risk Discharge criteria are identified: None. Discharged to home ambulatory, with significant other. Condition: stable Condition: improved. Discharge instructions given to patient, Instructed on discharge instructions, follow up and referral plans. medication usage, Demonstrated understanding of instructions, medications, Pt was receptive of discharge instructions/ teaching. Prescriptions given X 2. CT Study completed. Property sent home with patient. 00:19 Patient left the ED. erik Signatures: Dispatcher Med[employer] EDMS Darci Pérez MD MD pc Barnhardt, Gloria, Reg Reg Citlaly Loyd Brianne br3 Berna Alford, MARIELENA RN hs1 Jarvis Ballard, RPA-C RPA-Cck7 Cora Garcia, RN RN ttb Lazaro Martinez gr2 Glen Lopez RN RN erik Chart Complete MTDD
== END 2016-07-31 00:19 | disposition home or self-care (01) ==
LOC: M ED 18:01
DX: R10.11 Right upper quadrant pain (principal); R50.9 Fever, unspecified; M54.2 Cervicalgia; G89.29 Other chronic pain; G25.81 Restless legs syndrome; M54.81 Occipital neuralgia; Z87.442 Personal history of urinary calculi; Z79.899 Other long term (current) drug therapy; Z88.5 Allergy status to narcotic agent; F17.210 Nicotine dependence, cigarettes, uncomplicated
CPT/HCPCS: 36415; 74177; 76705; 80048; 80076; 81001; 82150; 83690; 85025; 87086; 96374; 96375; 99284; J2405; Q9967